=== PATIENT | female | born 1935 | race African-American/Black ===

== ENCOUNTER 2019-07-04 13:42 | Emergency (ER) | payer MEDICARE, OTHER ==
[~2019-07-04] VITALS: Ht 162.6 cm; Wt 58.0 kg
[2019-07-04 15:16] LABS: BASOPHILS % 0.6 % (0.0-2.0); EOSINOPHILS % 0.9 % (0.0-5.0); HEMATOCRIT. 31.9 % (36.0-48.0); HEMOGLOBIN. 10.1 g/dL (12.0-16.0); MEAN CORPUSCULAR HEMOGLOBIN 25.1 pg (28.0-32.0); MEAN CORPUSCULAR VOLUME 79.4 fL (81.0-99.0); MEAN PLATELET VOLUME 6.6 fl (7.4-10.4); NEUTROPHILS % 83.5 % (40.0-76.0); PLATELET 431 x1000/uL (130-400); RED BLOOD CELL COUNT 4.02 mill/uL (4.2-5.4); RED CELL DISTRIBUTION WIDTH 16.5 % (11.6-14.6)
[2019-07-04 15:21] LABS: CHLORIDE 108 mEq/L (98-107)
[2019-07-04] MEDS ORDERED: ACETAMINOPHEN 500MG TABLET PO ONE (17:00)
[2019-07-04] MEDS ORDERED: CLONIDINE 0.1MG TABLET PO ONE (17:00)
[2019-07-04 17:40] VITALS: BP 174/80
== END 2019-07-04 18:40 | disposition home or self-care (01) ==
LOC: ER 13:42 → SUPCPDRO 17:32 → ER 18:40
DX: G90.8 Other disorders of autonomic nervous system (principal); I16.0 Hypertensive urgency; D64.9 Anemia, unspecified; E86.0 Dehydration; R73.9 Hyperglycemia, unspecified; D72.829 Elevated white blood cell count, unspecified
CPT/HCPCS: 36415; 70486; 71045; 83880; 84484; 93005; 99284

== ENCOUNTER 2022-12-29 00:41 | Inpatient (IN) | payer OTHER ==
[~2022-12-29] VITALS: Ht 157.5 cm; Wt 94.8 kg
[2022-12-29 03:02] LABS: BASOPHILS % 0.6 % (0.0-2.0); EOSINOPHILS % 0.4 % (0.0-5.0); HEMATOCRIT. 34.3 % (36.0-48.0); LYMPHOCYTES % 7.5 % (20.0-50.0); MEAN CORPUSCULAR HEMOGLOBIN 27.2 pg (28.0-32.0); MEAN CORPUSCULAR VOLUME 84.7 fL (81.0-99.0); MEAN PLATELET VOLUME 6.6 fl (7.4-10.4); MONOCYTES % 7.7 % (2.0-8.0); NEUTROPHILS % 83.8 % (40.0-76.0); PLATELET 452 x1000/uL (130-400); RED BLOOD CELL COUNT 4.05 mill/uL (4.2-5.4); RED CELL DISTRIBUTION WIDTH 14.6 % (11.6-14.6)
[2022-12-29 03:09] LABS: CHLORIDE 109 mEq/L (98-107)
[2022-12-29 09:45] VITALS: BP 160/78
[2022-12-29 10:00] VITALS: BP 161/78
[2022-12-29] MEDS ORDERED: ACETAMINOPHEN 325MG TABLET PO PRN (11:30)
[2022-12-29] MEDS ORDERED: ONDANSETRON HCL 4MG/2ML INJ IV PRN (11:30)
[2022-12-29 12:00] VITALS: BP 141/90
[2022-12-29] MEDS: FUROSEMIDE 100MG/10ML VIAL IVP SCH ×2 (12:00→18:10)
[2022-12-29 13:40] LABS: CLARITY URINE CLEAR (CLEAR); COLOR URINE YELLOW (YELLOW); KETONES URINE NEGATIVE (NEGATIVE); LEUKOCYTE ESTERASE URINE NEGATIVE (NEGATIVE); NITRITE URINE NEGATIVE (NEGATIVE); OCCULT BLOOD URINE NEGATIVE (NEGATIVE); PROTEIN URINE NEGATIVE (NEGATIVE); SPECIFIC GRAVITY URINE 1.009 (1.005-1.030); UROBILINOGEN URINE 0.2 E.U./dL (0.2-1.0)
[2022-12-29] MEDS ORDERED: CHOL400D7 MT (13:46)
[2022-12-29] MEDS ORDERED: MELO-104 MT (13:46)
[2022-12-29] MEDS ORDERED: OMEP40CA20 MT (13:46)
[2022-12-29] MEDS ORDERED: TELM80TA8 MT (13:46)
[2022-12-29] MEDS ORDERED: ASPI-1497 MT (13:46)
[2022-12-29] MEDS ORDERED: FERR-71 MT (13:46)
[2022-12-29] MEDS ORDERED: AMLO10TA80 MT (13:46)
[2022-12-29] MEDS ORDERED: HYDRALAZINE HCL 50MG TABLET PO SCH (14:00)
[2022-12-29] MEDS: ISOSORBIDE DINITRATE 10MG TABLET PO SCH ×2 (14:20→18:08)
[2022-12-29] MEDS: SPIRONOLACTONE 25MG TABLET PO SCH (14:20)
[2022-12-29] MEDS ORDERED: IPRATROPIUM/ALBUTEROL 0.5-3(2.5)MG/3ML NEB HHN PRN (15:00)
[2022-12-29 15:23] LABS: BG BASE EXCESS -2.6 mmol/L (-2.0-2.0); BG CARBOXYHEMOGLOBIN 0.1 % (0.5-1.5); BG DEOXYHEMOGLOBIN 0.7 % (0.0-5.0); BG FRACTION INSPIRED OXYGEN 100; BG HCO3 ACT 20.1 mmol/L (22.0-26.0); BG METHEMOGLOBIN 0.2 % (0.0-1.5); BG OXYGEN SATURATION 99.3 % (92.0-98.5); BG PCO2 28.3 mmHg (35.0-45.0); BG PH 7.469 (7.350-7.450); BG PO2 254.4 mmHg (75.0-100.0); BG SAMPLE SITE RIGHT RADIAL; BG TOTAL HEMOGLOBIN 11.4 g/dL (12.0-18.0); BG VENT MODE MASK - NRB
[2022-12-29 15:48] LABS: CHLORIDE 107 mEq/L (98-107)
[2022-12-29 15:55] LABS: BASOPHILS % 0.3 % (0.0-2.0); EOSINOPHILS % 0.4 % (0.0-5.0); HEMATOCRIT. 32.2 % (36.0-48.0); HEMOGLOBIN. 10.4 g/dL (12.0-16.0); LYMPHOCYTES % 7.6 % (20.0-50.0); MEAN CORPUSCULAR VOLUME 83.5 fL (81.0-99.0); MEAN PLATELET VOLUME 6.7 fl (7.4-10.4); MONOCYTES % 8.8 % (2.0-8.0); NEUTROPHILS % 82.9 % (40.0-76.0); PLATELET 478 x1000/uL (130-400); RED BLOOD CELL COUNT 3.85 mill/uL (4.2-5.4); RED CELL DISTRIBUTION WIDTH 14.5 % (11.6-14.6)
[2022-12-29 16:20] VITALS: BP 116/64
[2022-12-29] MEDS ORDERED: ENOXAPARIN 40MG/0.4ML SYR SUBCUT SCH (17:00)
[2022-12-29] MEDS ORDERED: POTASSIUM CHLORIDE 20MEQ TABLET SR PO NR (17:30)
[2022-12-29 20:00] VITALS: BP 132/75
[2022-12-29] MEDS: ATORVASTATIN CALCIUM 40MG TABLET PO SCH (21:19)
[2022-12-29] MEDS: METOPROLOL TARTRATE 25MG TABLET PO SCH (21:19)
[2022-12-29 22:00] VITALS: BP 85/27
[2022-12-30] VITALS (11 sets, daily range): BP systolic 90–131; BP diastolic 27–80
[2022-12-30] MEDS ORDERED: AMLODIPINE 5MG TABLET PO SCH (09:00)
[2022-12-30] MEDS ORDERED: IOHEXOL-350 100 ML BOTTLE ONE (10:08)
[2022-12-30] MEDS: ASPIRIN 81MG TABLET PO SCH (10:47)
[2022-12-30] MEDS: SPIRONOLACTONE 25MG TABLET PO SCH (10:48)
[2022-12-30] MEDS: FUROSEMIDE 100MG/10ML VIAL IVP SCH ×2 (10:49→17:25)
[2022-12-30] MEDS: METOPROLOL TARTRATE 25MG TABLET PO SCH ×2 (10:51→22:05)
[2022-12-30] MEDS: ISOSORBIDE DINITRATE 10MG TABLET PO SCH ×3 (10:53→17:24)
[2022-12-30] MEDS: ENOXAPARIN 100MG/ML SYR SUBCUT SCH ×2 (11:24→22:06)
[2022-12-30 13:03] LABS: PROTHROMBIN TIME 10.9 sec (9.6-11.0)
[2022-12-30] MEDS: ATORVASTATIN CALCIUM 40MG TABLET PO SCH (22:05)
[2022-12-31] VITALS (13 sets, daily range): BP systolic 86–137; BP diastolic 43–91
[2022-12-31 06:09] LABS: BASOPHILS % 0.9 % (0.0-2.0); EOSINOPHILS % 1.5 % (0.0-5.0); HEMATOCRIT. 32.9 % (36.0-48.0); HEMOGLOBIN. 10.8 g/dL (12.0-16.0); LYMPHOCYTES % 11.8 % (20.0-50.0); MEAN CORPUSCULAR HEMOGLOBIN 27.5 pg (28.0-32.0); MEAN PLATELET VOLUME 6.7 fl (7.4-10.4); NEUTROPHILS % 74.8 % (40.0-76.0); PLATELET 471 x1000/uL (130-400); RED BLOOD CELL COUNT 3.92 mill/uL (4.2-5.4); RED CELL DISTRIBUTION WIDTH 14.5 % (11.6-14.6)
[2022-12-31] MEDS ORDERED: LEVOFLOXACIN 500MG TABLET PO SCH (09:00)
[2022-12-31] MEDS: ASPIRIN 81MG TABLET PO SCH (09:09)
[2022-12-31] MEDS: METOPROLOL TARTRATE 25MG TABLET PO SCH ×2 (09:10→21:01)
[2022-12-31] MEDS: SPIRONOLACTONE 25MG TABLET PO SCH (09:10)
[2022-12-31] MEDS: ISOSORBIDE DINITRATE 10MG TABLET PO SCH ×3 (09:10→18:56)
[2022-12-31] MEDS: ENOXAPARIN 100MG/ML SYR SUBCUT SCH (11:11)
[2022-12-31] MEDS: ATORVASTATIN CALCIUM 40MG TABLET PO SCH (21:01)
[2023-01-01] VITALS (10 sets, daily range): BP systolic 97–142; BP diastolic 52–65
[2023-01-01 06:41] LABS: BASOPHILS % 0.7 % (0.0-2.0); EOSINOPHILS % 1.3 % (0.0-5.0); HEMATOCRIT. 30.7 % (36.0-48.0); HEMOGLOBIN. 9.9 g/dL (12.0-16.0); LYMPHOCYTES % 12.2 % (20.0-50.0); MEAN CORPUSCULAR HEMOGLOBIN 26.9 pg (28.0-32.0); MEAN CORPUSCULAR VOLUME 83.4 fL (81.0-99.0); MEAN PLATELET VOLUME 6.7 fl (7.4-10.4); NEUTROPHILS % 74.8 % (40.0-76.0); PLATELET 460 x1000/uL (130-400); RED BLOOD CELL COUNT 3.68 mill/uL (4.2-5.4); RED CELL DISTRIBUTION WIDTH 14.3 % (11.6-14.6)
[2023-01-01] MEDS: ISOSORBIDE DINITRATE 10MG TABLET PO SCH ×3 (08:27→17:00)
[2023-01-01] MEDS: ASPIRIN 81MG TABLET PO SCH (08:27)
[2023-01-01] MEDS: METOPROLOL TARTRATE 25MG TABLET PO SCH (08:27)
[2023-01-01] MEDS: SPIRONOLACTONE 25MG TABLET PO SCH (08:28)
[2023-01-01] MEDS ORDERED: ENOXAPARIN 100MG/ML SYR SUBCUT SCH (09:00)
[2023-01-01] MEDS: LEVOFLOXACIN 250MG TABLET PO SCH ×2 (11:00→12:12)
[2023-01-01 13:53] LABS: BG BASE EXCESS -0.5 mmol/L (-2.0-2.0); BG CARBOXYHEMOGLOBIN 0.5 % (0.5-1.5); BG DEOXYHEMOGLOBIN 4.1 % (0.0-5.0); BG FRACTION INSPIRED OXYGEN 21; BG HCO3 ACT 22.4 mmol/L (22.0-26.0); BG METHEMOGLOBIN 0.1 % (0.0-1.5); BG OXYGEN SATURATION 95.9 % (92.0-98.5); BG OXYHEMOGLOBIN 95.3 % (94.0-97.0); BG PCO2 31.1 mmHg (35.0-45.0); BG PH 7.476 (7.350-7.450); BG PO2 79.2 mmHg (75.0-100.0); BG SAMPLE SITE RIGHT BRACHIAL; BG TOTAL HEMOGLOBIN 10.9 g/dL (12.0-18.0); BG VENT MODE ROOM AIR
[2023-01-01] MEDS ORDERED: APIXABAN 2.5 MG TABLET PO SCH (21:00)
[2023-01-01] MEDS ORDERED: APIXABAN 5 MG TABLET PO SCH (21:00)
[2023-01-08] MEDS ORDERED: APIXABAN 5 MG TABLET PO SCH (21:00)
== END 2023-01-01 18:50 | disposition home or self-care (01) | DRG 280 ==
LOC: ER 00:41 → 8WST 10:02 → 5EST 16:20
PROVIDERS: ADMIT Internal Medicine; ATTEND Internal Medicine
DX: I21.4 Non-ST elevation (NSTEMI) myocardial infarction (principal); I26.99 Other pulmonary embolism without acute cor pulmonale; J96.01 Acute respiratory failure with hypoxia; I50.33 Acute on chronic diastolic (congestive) heart failure; N17.9 Acute kidney failure, unspecified; I11.0 Hypertensive heart disease with heart failure; Z68.38 Body mass index [BMI] 38.0-38.9, adult; E66.9 Obesity, unspecified; I16.0 Hypertensive urgency; I48.0 Paroxysmal atrial fibrillation; Z20.822 Contact with and (suspected) exposure to COVID-19
CPT/HCPCS: 36415; 36600; 71045; 71275; 80048; 80053; 81003; 82375; 82805; 82962; 83605; 83880; 84145; 84484; 85025; 85379; 87426; 93005; 93306; 93970; 97116; 97162; 99291; J1650; J1940; Q9967